=== PATIENT | female | born 1955 | race Caucasian/White ===

== ENCOUNTER → 2017-09-01 17:32 | Outpatient (CLI) | payer OTHER, SELFPAY ==
[2017-09-01 16:32] VITALS: BP 209/96; BMI 19.5
[2017-09-01 18:49] LABS: Free T3 2.6 pg/mL (2.18-3.98); T4 Free Direct 1.16 ng/dL (0.76-1.46); Thyroid Stim Hormone (TSH) 0.93 uIU/mL (0.358-3.74)
== END ==
PROVIDERS: Visit Provider Nurse Practitioner
DX: E03.9 Hypothyroidism, unspecified (principal)
CPT/HCPCS: 36415; 84439; 84443; 84481

== ENCOUNTER → 2020-03-14 10:48 | Outpatient (CLI) | payer OTHER, SELFPAY ==
[2020-03-14 10:22] VITALS: BMI 21.4
[2020-03-14 13:04] LABS: AST(SGOT) 26 U/L (15-37); Alanine Aminotransfer ALT/SGPT 22 U/L (13-56); Albumin, Serum 4.1 g/dL (3.2-5.0); Alkaline Phosphatase 161 U/L (45-117); Anion Gap 8 (5-15); BUN 4 mg/dL (7-18); BUN/Creat Ratio 5.6 RATIO (10-20); Calcium,Total 9.3 mg/dL (8.5-10.1); Chloride 90 mmol/L (98-107); Creatinine, Serum 0.71 mg/dL (0.55-1.02); EST Glomerular Filtration Rate 88 mL/min (>60); Est Glom Filt Rate - Afr Amer 106 mL/min (>60); Glucose 137 mg/dL (74-106); Potassium 4.4 mmol/L (3.5-5.1); Protein, Total 8.1 g/dL (6.4-8.2); Sodium Level 122 mmol/L (136-145); T4 Free Direct 1.51 ng/dL (0.76-1.46); Thyroid Stim Hormone (TSH) 0.03 uIU/mL (0.358-3.74)
== END ==
PROVIDERS: Referring Provider Internal Medicine Endocrinology, Diabetes & Metabolism; Visit Provider Internal Medicine Endocrinology, Diabetes & Metabolism
DX: E89.0 Postprocedural hypothyroidism (principal); I10 Essential (primary) hypertension
CPT/HCPCS: 36415; 80053; 84439; 84443

== ENCOUNTER 2023-09-20 03:34 | Inpatient (IN) | payer MEDICARE, SELFPAY ==
[2023-09-20] VITALS (7 sets, daily range): BP systolic 84–174; BP diastolic 70–126; PULSE 70–108; RESP 16–18; TEMP 36.3–37.1; O2SAT 96–99; BMI 22.8
--- NOTE | 2023-09-20 04:41 | PCM.HP.STD ---
HPI - General General Date of Admission: 09/20/23 Date of Service: 09/20/23 Chief Complaint: EtOH withdrawal symptoms, fall w/ RUE fracture. HPI Narrative The patient is a 67 y/o F w/ PMHx: Hypothyroidism, HTN, EtOH abuse (1 bottle wine, 4-6 beers nightly) who presents to the [facility] as direct admission 09/20/23 from [facility] ED secondary to fall noted to be on the ground when EMS arrived, possibly near 24 hours but uncertain timeline with evidence of withdrawal symptoms with tremors and confusion with last drink prior to OSH ED presentation noted ~ 24 hours prior to ED presentation. Workup in the outside hospital ED included VS: T98.1, HR 87, BP 127/92, RR 16, 96% on RA, ethyl alcohol 5, CPK 181, CMP with sodium 132, potassium 3.2, chloride 93, glucose 74, BUN/creatinine 12/0.65, AST/ALT 27/26, alk phos 178 otherwise hepatic profile not marked appearing, CBC with WBC 9.3, human 13.5, MCV 97, platelet 553 with left shift, coags with PT 13, INR 1.1, CT brain and CT cervical spine without acute findings, EKG with SR without acute evidence of ischemia, Plain Film RUE with distal radial fracture that was reduced and splinted in the ED. In the ED patient 130 mg IV phenobarbital administered, 2 mg IV ativan, potassium 40 mEq IV x 1, 1L NS, 200 mg thiamine, 1 mg folic acid. [facility] Medical History Alcohol abuse Hypertension, essential Postablative hypothyroidism Home Medications clonidine HCl 0.1 mg tablet 0.2 mg PO QHS 02/05/23 [History Last Taken Unknown] levothyroxine 88 mcg tablet 88 mcg PO .COMPLEX #90 tabs 02/05/23 [Rx Last Taken Unknown] metoprolol succinate 100 mg tablet,extended release 24 hr 100 mg PO DAILY 02/05/23 [History Last Taken Unknown] metoprolol succinate 25 mg tablet,extended release 24 hr mg PO DAILY HTN 09/20/23 [History Last Taken Unknown] Allergy/AdvReac Type Severity Reaction Status Date / Time poison robyn extract AdvReac Severe Rash Verified 02/05/23 08:41 Family History Mother Cancer Father Cancer Sister Thyroid disorder Surgical History History of surgical removal of ganglion cyst Social History (Updated 09/20/23 @ 05:17 by Kristy Kenyon) household members: none Smoking Status: Heavy Smoker (>10/day) alcohol intake: current alcohol intake frequency: 3 or more drinks per day substance use type: does not use ROS ROS Narrative Admission Review of Systems: CONSTITUTIONAL: No weight loss, fever, chills, + weakness or fatigue. HEENT: Eyes: No visual loss, blurred vision, double vision or yellow sclerae. Ears, Nose, Throat: No hearing loss, sneezing, congestion, runny nose or sore throat. SKIN: No rash or itching, lesions, wounds. CARDIOVASCULAR: No chest pain, chest pressure or chest discomfort, palpitations, edema, orthopnea, syncopal events. RESPIRATORY: No shortness of breath, cough or sputum, wheezing, hemoptysis. GASTROINTESTINAL: + anorexia, nausea. No vomiting or diarrhea, abdominal pain, melena, BRBPR. GENITOURINARY: No dysuria, frequency, urgency or retention. NEUROLOGICAL: + Tremors, tactile disturbances, frequent falls. No headache, dizziness, syncope, paralysis, ataxia, numbness or tingling in the extremities, focal weakness, change in bowel or bladder control, seizure. MUSCULOSKELETAL: + muscle, back pain, joint pain or stiffness. HEMATOLOGIC: No anemia, + Easy bleeding/bruising. LYMPHATICS: No enlarged nodes. No history of splenectomy. PSYCHIATRIC: No history of depression or anxiety. ENDOCRINOLOGIC: No reports of sweating, cold or heat intolerance. No polyuria or polydipsia. ALLERGIES: No history of asthma, hives, eczema or rhinitis. Physical Exam Narrative Physical Examination: General: Awake, alert, oriented to self, place, recent events, laughing and very bubbly with appearance of substance intoxication, remains cooperative, seated upright in the bed in no apparent distress. Skin: Normal color, normal turgor, no icterus, no cyanosis except occasional abrasion, very staged ecchymoses, right upper extremity is in splint. HEENT: AT/NC, EOMI, PERRLA, mildly dry MM, no carotid bruits or JVD noted. Lungs: Mildly diminished, greater bases, proper effort, no rales, ronchi or wheezing. Heart: Regular rate and rhythm; no gallop, rub audible. Abdomen: Soft, NTTP, ND, mildly hyperactive BS, no markedly appreciated HSM. Extremities: No cyanosis, no clubbing, see skin, right upper extremity in splint as noted, able to move fingers, sensation intact. Neurological: Patient awake, alert, oriented as noted, cognitive function suspect mildly off from her baseline given acute presentation with acute withdrawal and recent sedated medication; pupils equally reactive to light and accommodation, cranial nerves grossly normal, moving all 4 extremities, strength moderately to severely globally decreased secondary to acute presentation. Psychiatric: Affect appears interactive, appearance of substance intoxication, no acute evidence of depressive or anxiety feelings. Assessment & Plan Assessment/Plan (1) Alcohol withdrawal: (2) Distal radius fracture, right: PLAN: Plan The patient is a 67 y/o F w/ PMHx: Hypothyroidism, HTN, EtOH abuse (1 bottle wine, 4-6 beers nightly) who presents to the [facility] as direct admission 09/20/23 from [facility] ED secondary to fall noted to be on the ground when EMS arrived, possibly near 24 hours but uncertain timeline with evidence of withdrawal symptoms with tremors and confusion with last drink prior to OSH ED presentation noted ~ 24 hours prior to ED presentation. #1. Acute EtOH Withdrawal: Will admit to [facility], will initiate and continue on protocol with taper course of Phenobarbital, as needed gabapentin, Catapres, Bentyl, Vistaril, IV fluids, IV antiemetics, Tylenol as needed for pain. Will consult Case management for assistance for transition to next level of rehabilitation care. Mag, phos pending. Maintain on CIWA protocol concurrently. #2. Distal right upper extremity radial fracture: Plain film at outside facility with distal radial fracture of the right upper extremity status post reduction and splinting, will maintain nonweightbearing status, sling, elevation, icing, pain regimen, will need outpatient follow-up with orthopedic surgery at discharge. If concerns arise during admission certainly can request their evaluation inpatient. #3. History of frequent falls: Current presentation with fall history as noted but previously also had fall 09/10/2023 with outside facility imaging notable for CT chest/abdomen/pelvis with noted interval progression L1 compression fracture to severe with posterior retropulsion, nondisplaced T12 rib fracture with costovertebral angulation, T10 mild inferior endplate compression fracture, CT brain with no acute intracranial finding, extensive periventricular and patchy deep cerebral white matter hypodensities secondary to chronic small vessel ischemic disease, global atrophy, CT cervical spine with no acute osseous abnormality with multilevel degenerative changes resulting in varying degrees of foraminal narrowing. #4. Hyponatremia, possibly chronic given alcohol abuse history: Admission sodium from outside facility 132, will judiciously hydrate and repeat CMP in AM. #5. Hypokalemia: Admission K+ 3.2, magnesium level requested, supplementation given, repeat level in AM. #6. Hypothyroidism: Status post previous ablative therapy, will continue patient home levothyroxine regimen. #7. Hypertension: Continue home regimen including clonidine, lisinopril, PRN hydralazine. Given timeline suspect patient likely missed doses therefore will dose with clonidine now to avoid rebound hypertension. #8. DVT prophylaxis: Lovenox. Charges/Coding Visit Charges Inpatient E&M: 28638 Init Hosp L3
[2023-09-20] MEDS: Lactated Ringers 1,000 ML 125 ML IV (05:00)
[2023-09-20] MEDS: Phenobarbital 32.4 MG Tablet PO ×4 (05:59→18:49)
[2023-09-20] MEDS: cloNIDine HCl 0.2 MG Tablet PO ×2 (05:59→21:13)
[2023-09-20] MEDS: Levothyroxine 88 MCG Tablet PO (05:59)
[2023-09-20 07:30] LABS: Absolute Lymphocyte Count 0.58 X10^3/uL (0.83-4.51); Absolute Neutrophil Count 4.6 X10^3/uL (2.0-7.7); Basophil# 0.05 X10^3/uL; Basophil% 0.8 % (0-1); Eosinophil# 0.11 X10^3/uL; Eosinophils% 1.8 % (0-5); Hematocrit 36.2 % (37-47); Hemoglobin 12.1 g/dL (12.0-15.0); Lymphocyte # 0.58 X10^3/ul (0.83-4.51); Lymphocyte % 9.5 % (19-41); Mean Corp Hgb Conc 33.4 g/dL (32-36); Mean Corpuscular Hgb 32.5 pg (27.0-32.0); Mean Corpuscular Volume 97.3 fL (81-99); Mean Platelet Vol. 8.9 fl (6.2-12.0); Monocyte# 0.72 X10^3/uL; Monocyte% 11.8 % (0-10); NRBC Flagged by Analyzer 0 % (0-5); Neutrophil # 4.63 X10^3/uL (2.7-7.7); Neutrophil % 75.6 % (47-70); POSITIVE DIFFERENTIAL YES; Platelet Count 454 K/mm3 (150-450); RBC Distribution Width CV 12.1 % (11.6-14.6); Red Blood Count 3.72 M/mm3 (4.2-5.4); White Blood Count 6.1 K/mm3 (4.4-11.0)
[2023-09-20 08:03] LABS: AST(SGOT) 24 U/L (15-37); Alanine Aminotransfer ALT/SGPT 16 U/L (13-56); Albumin, Serum 2.9 g/dL (3.2-5.0); Alkaline Phosphatase 153 U/L (45-117); Anion Gap 11 (5-15); BUN 9 mg/dL (7-18); BUN/Creat Ratio 22.1 RATIO (10-20); Calcium,Total 8.4 mg/dL (8.5-10.1); Chloride 104 mmol/L (98-107); Creatinine, Serum 0.41 mg/dL (0.55-1.02); EST Glomerular Filtration Rate 165 mL/min (>60); Est Glom Filt Rate - Afr Amer 200 mL/min (>60); Estimated Creatinine Clearance 53.97 ml/min; Glucose 66 mg/dL (74-106); Magnesium 1.7 mg/dL (1.6-2.6); Phosphorus 2.6 mg/dL (2.5-4.9); Potassium 3.5 mmol/L (3.5-5.1); Protein, Total 5.9 g/dL (6.4-8.2); Sodium Level 134 mmol/L (136-145)
--- NOTE | 2023-09-20 08:26 | PCM.PN.HOSP ---
Reason for Visit Reason for Visit: Diagnoses Alcohol use, unspecified with withdrawal, unspecified (09/20/23) Unspecified fracture of the lower end of right radius, initial encounter for closed fracture (09/20/23) Objective Data Objective Data Vital Signs: Vital Signs Temp Pulse Resp BP Pulse Ox O2 Del Method 98.7 F 108 H 18 174/126 H 99 Room Air 09/20/23 05:00 09/20/23 05:00 09/20/23 05:00 09/20/23 05:00 09/20/23 05:00 09/20/23 06:05 Oxygen Delivery Method Room Air Weight: 124 lb 8.979 oz Body Mass Index (BMI) 22.8 Intake & Output: Intake and Output for Last 24 Hours 09/18/23 09/19/23 09/20/23 23:59 23:59 23:59 Intake Total 150 / 150 Balance 150 / 150 Lab / Micro Data 09/20/23 06:45 09/20/23 06:45 Labs: Laboratory Results - last 24 hr 09/20/23 06:45: WBC 6.1, RBC 3.72 L, Hgb 12.1, Hct 36.2 L, MCV 97.3, MCH 32.5 H, MCHC 33.4, RDW Std Deviation 43.0, RDW Coeff of Chace 12.1, Plt Count 454 H, MPV 8.9, Immature Gran % (Auto) 0.500, Neut % (Auto) 75.6 H, Lymph % (Auto) 9.5 L, [place] % (Auto) 11.8 H, Eos % (Auto) 1.8, Baso % (Auto) 0.8, Absolute Neuts (auto) 4.6, Absolute Lymphs (auto) 0.58 L, Nucleated RBC % 0, Sodium 134 L, Potassium 3.5, Chloride 104, Carbon Dioxide 19.0 L, Anion Gap 11, BUN 9, Creatinine 0.41 L, Estim Creat Clear Calc 53.97, Est GFR (MDRD) Af Amer 200, Est GFR (MDRD) Non-Af 165, BUN/Creatinine Ratio 22.1 H, Glucose 66 L, Calcium 8.4 L, Phosphorus 2.6, Magnesium 1.7, Total Bilirubin 0.60, AST 24, ALT 16, Alkaline Phosphatase 153 H, Total Protein 5.9 L, Albumin 2.9 L, Globulin 3.0, Albumin/Globulin Ratio 1.0 Assessment & Plan Assessment/Plan (1) Alcohol withdrawal: (2) Distal radius fracture, right: PLAN: Plan The patient is a 67 y/o F w/ PMHx: Hypothyroidism, HTN, EtOH abuse (1 bottle wine, 4-6 beers nightly) who presents to the [facility] as direct admission 09/20/23 from [facility] ED secondary to fall noted to be on the ground when EMS arrived, possibly near 24 hours but uncertain timeline with evidence of withdrawal symptoms with tremors and confusion with last drink prior to OSH ED presentation noted ~ 24 hours prior to ED presentation. #1. Acute EtOH Withdrawal: Patient is being admitted to PCU. Patient on phenobarbital based order set along with other adjunctive medications gabapentin, Bentyl, Vistaril, clonidine, Klonopin as needed for alcohol withdrawal symptom control. Patient is on thiamine and folate acid. CIWA monitor. finance manager consulted.. #2. Distal right upper extremity radial fracture: Plain film at outside facility with distal radial fracture of the right upper extremity status post reduction and splinting, will maintain nonweightbearing status, sling, elevation, icing, pain regimen, will need outpatient follow-up with orthopedic surgery at discharge. #3. History of frequent falls: Current presentation with fall history as noted but previously also had fall 09/10/2023 with outside facility imaging notable for CT chest/abdomen/pelvis with noted interval progression L1 compression fracture to severe with posterior retropulsion, nondisplaced T12 rib fracture with costovertebral angulation, T10 mild inferior endplate compression fracture, CT brain with no acute intracranial finding, extensive periventricular and patchy deep cerebral white matter hypodensities secondary to chronic small vessel ischemic disease, global atrophy, CT cervical spine with no acute osseous abnormality with multilevel degenerative changes resulting in varying degrees of foraminal narrowing. #4. Hyponatremia, possibly chronic given alcohol abuse history: Admission sodium from outside facility 132 Serum sodium 134. Chronic mostly due to low solute intake. #5. Hypokalemia: Admission K+ 3.2, magnesium level requested, supplementation given, Serum potassium low normal. Serum magnesium 1.7. Potassium and magnesium replacement ordered on chronic alcohol use disorder patient #6. Hypothyroidism: Status post previous ablative therapy, will continue patient home levothyroxine regimen. #7. Hypertension: Continue home regimen including clonidine, lisinopril, PRN hydralazine. Given timeline suspect patient likely missed doses therefore will dose with clonidine now to avoid rebound hypertension. #8. DVT prophylaxis: Lovenox. Charges/Coding Visit Charges Inpatient E&M: 80979 Subs Hosp L2
[2023-09-20] MEDS: Folic Acid 1 MG Tablet PO (10:43)
[2023-09-20] MEDS: Thiamine Hydrochloride 100 MG Tablet PO (10:43)
[2023-09-20] MEDS: Enoxaparin 40 MG/0.4 ML Syringe SC (10:48)
--- NOTE | 2023-09-20 15:20 | CASEMGMT ---
Addendum entered by Tia Thomas 09/20/23 15:24: [facility] Justine Palencialuis [phone]. Original Note: ELMA received a call from Justine Lang of [facility]. Justine asked if patient was still at [facility], how she is doing, and if SW could notify her when patient is discharged. SW confirmed patient is at [facility] and she is currently confused. ELMA will call Adult Protective Services when patient is ready for discharge. Tia LARA
[2023-09-20] MEDS: Potassium Chloride Oral Tablet 20 MEQ 40 MEQ PO (15:34)
[2023-09-20] MEDS: Magnesium Chloride 64 MG Delay Rel.Tablet 128 MG PO ×2 (15:35→21:13)
[2023-09-21] MEDS: Phenobarbital 32.4 MG Tablet PO ×7 (00:05→22:47)
[2023-09-21 04:30] VITALS: BP 136/89; PULSE 80; RESP 18; TEMP 36.2; O2SAT 96
[2023-09-21] MEDS: Ibuprofen 600 MG Tablet PO ×2 (04:40→15:56)
[2023-09-21] MEDS: Levothyroxine 88 MCG Tablet PO (04:40)
[2023-09-21] MEDS: Enoxaparin 40 MG/0.4 ML Syringe SC (04:41)
[2023-09-21 07:10] VITALS: O2SAT 95
[2023-09-21] MEDS: Thiamine Hydrochloride 100 MG Tablet PO (08:00)
[2023-09-21] MEDS: Potassium Chloride Oral Tablet 20 MEQ 40 MEQ PO (08:00)
[2023-09-21] MEDS: Folic Acid 1 MG Tablet PO (08:00)
[2023-09-21] MEDS: Multivitamins,Ther W-Minerals Tablet 1 TABLET PO (08:00)
[2023-09-21 08:24] VITALS: BP 129/93; PULSE 94; RESP 18; TEMP 36.3; O2SAT 97
[2023-09-21 08:37] LABS: ALB/GLOB Ratio 0.9 RATIO (0.9-2.4); AST(SGOT) 19 U/L (15-37); Alanine Aminotransfer ALT/SGPT 16 U/L (13-56); Albumin, Serum 2.7 g/dL (3.2-5.0); Alkaline Phosphatase 135 U/L (45-117); Anion Gap 10 (5-15); BUN 8 mg/dL (7-18); BUN/Creat Ratio 17.4 RATIO (10-20); Calcium,Total 8.4 mg/dL (8.5-10.1); Chloride 105 mmol/L (98-107); Creatinine, Serum 0.46 mg/dL (0.55-1.02); EST Glomerular Filtration Rate 144 mL/min (>60); Est Glom Filt Rate - Afr Amer 174 mL/min (>60); Estimated Creatinine Clearance 53.97 ml/min; Glucose 62 mg/dL (74-106); Potassium 4.1 mmol/L (3.5-5.1); Protein, Total 5.7 g/dL (6.4-8.2); Sodium Level 134 mmol/L (136-145)
--- NOTE | 2023-09-21 08:53 | PCM.PN.HOSP ---
Reason for Visit Reason for Visit: Diagnoses Alcohol use, unspecified with withdrawal, unspecified (09/20/23) Unspecified fracture of the lower end of right radius, initial encounter for closed fracture (09/20/23) Objective Data Objective Data Vital Signs: Vital Signs Temp Pulse Resp BP Pulse Ox O2 Del Method 97.3 F L 94 18 129/93 H 97 Room Air 09/21/23 08:24 09/21/23 08:24 09/21/23 08:24 09/21/23 08:24 09/21/23 08:24 09/21/23 08:24 Oxygen Delivery Method Room Air Weight: 124 lb 8.979 oz Body Mass Index (BMI) 22.8 Intake & Output: Intake and Output for Last 24 Hours 09/19/23 09/20/23 09/21/23 23:59 23:59 23:59 Intake Total 1330 / 1450 270 / 270 Output Total 150 / 350 200 / 200 Balance 1180 / 1100 70 / 70 Lab / Micro Data 09/20/23 06:45 09/21/23 07:45 Labs: Laboratory Results - last 24 hr 09/21/23 07:45: Sodium 134 L, Potassium 4.1, Chloride 105, Carbon Dioxide 19.0 L, Anion Gap 10, BUN 8, Creatinine 0.46 L, Estim Creat Clear Calc 53.97, Est GFR (MDRD) Af Amer 174, Est GFR (MDRD) Non-Af 144, BUN/Creatinine Ratio 17.4, Glucose 62 L, Calcium 8.4 L, Total Bilirubin 0.40, AST 19, ALT 16, Alkaline Phosphatase 135 H, Total Protein 5.7 L, Albumin 2.7 L, Globulin 3.0, Albumin/Globulin Ratio 0.9 Physical Exam Narrative Seen and examined. Patient is awake and talking. Yesterday she was very sleepy and sedated. She stated she did not had a bowel movement for for 5 days. No dysuria. Physical exam General: Alert, Oriented x3, Cooperative feels fatigued. HEENT: Atraumatic, PERRLA, EOMI, Normocephalic Oral: No Gingival or Mucosal Lesions/ Ulcerations Neck: Supple, No JVD, Negative Carotid Bruits Chest wall/Lungs: Air entry diminished in bilateral lung bases. No crepitation/rhonchi Cardiovascular: Regular rate, Regular Rhythm, Normal S1, Normal S2, No M/G/R Abdomen: Bowel Sounds Present, Soft, Non Tender, Non-Distended : No dysuria. No renal angle tenderness. No suprapubic tenderness. Extremities: No edema, Capillary Refill Less than 3 Seconds Skin: No rashes, No breakdown Musculoskeletal: No Tenderness to Palpation of Joints or Extremities. Mild shaking/tremors Neurological: Cranial nerves II-XII grossly intact, DTR 2+/4. No acute focal neurological deficit. Psych/Mental Status: Flat affect Assessment & Plan Assessment/Plan (1) Alcohol withdrawal: (2) Distal radius fracture, right: PLAN: Plan The patient is a 67 y/o F w/ PMHx: Hypothyroidism, HTN, EtOH abuse (1 bottle wine, 4-6 beers nightly) who presents to the [facility] as direct admission 09/20/23 from [facility] ED secondary to fall noted to be on the ground when EMS arrived, possibly near 24 hours but uncertain timeline with evidence of withdrawal symptoms with tremors and confusion with last drink prior to OSH ED presentation noted ~ 24 hours prior to ED presentation. #1. Acute EtOH Withdrawal: Patient is being admitted to PCU. Patient on phenobarbital based order set along with other adjunctive medications gabapentin, Bentyl, Vistaril, clonidine, Klonopin as needed for alcohol withdrawal symptom control. Patient is on thiamine and folate acid. CIWA monitor. biodiesel engineering manager consulted. 09/21: Patient is more awake and alert but is still shaking. Continue above medications. #2. Distal right upper extremity radial fracture: Plain film at outside facility with distal radial fracture of the right upper extremity status post reduction and splinting, will maintain nonweightbearing status, sling, elevation, icing, pain regimen, will need outpatient follow-up with orthopedic surgery at discharge. #3. History of frequent falls: Current presentation with fall history as noted but previously also had fall 09/10/2023 with outside facility imaging notable for CT chest/abdomen/pelvis with noted interval progression L1 compression fracture to severe with posterior retropulsion, nondisplaced T12 rib fracture with costovertebral angulation, T10 mild inferior endplate compression fracture, CT brain with no acute intracranial finding, extensive periventricular and patchy deep cerebral white matter hypodensities secondary to chronic small vessel ischemic disease, global atrophy, CT cervical spine with no acute osseous abnormality with multilevel degenerative changes resulting in varying degrees of foraminal narrowing. #4. Hyponatremia, possibly chronic given alcohol abuse history: Admission sodium from outside facility 132 Serum sodium 134. Chronic mostly due to low solute intake. 09/14; sodium is 13, serum potassium normal.4 bicarb 19. Anion gap 10. #5. Hypokalemia: Admission K+ 3.2, magnesium level requested, supplementation given, Serum potassium low normal. Serum magnesium 1.7. Potassium and magnesium replacement ordered on chronic alcohol use disorder patient 09/21: Hypokalemia resolved. #6. Hypothyroidism: Status post previous ablative therapy, will continue patient home levothyroxine regimen. #7. Hypertension: Continue home regimen including clonidine, lisinopril, PRN hydralazine. Given timeline suspect patient likely missed doses therefore will dose with clonidine now to avoid rebound hypertension. #8. DVT prophylaxis: Lovenox. Charges/Coding Visit Charges Inpatient E&M: 80907 Subs Hosp L2
[2023-09-21] MEDS: Magnesium Chloride 64 MG Delay Rel.Tablet 128 MG PO ×2 (10:20→22:47)
[2023-09-21 10:21] VITALS: BP 128/95; PULSE 119
[2023-09-21] MEDS: Metoprolol(XL)Succ 25 MG Tablet PO (10:21)
[2023-09-21 10:30] VITALS: BP 128/90; PULSE 112; RESP 16; TEMP 36.4; O2SAT 98
--- NOTE | 2023-09-21 11:13 | ADDICTION ---
This worker met with PT and completed all assessments. Pt refused any type of discharge planning. She thanked me for my time but was not interested in any AOD follow-up.
[2023-09-21 11:35] LABS: Bedside Glucose 91 mg/dL (74-106)
[2023-09-21 20:30] VITALS: BP 145/106; PULSE 94; RESP 14; TEMP 36.7; O2SAT 95
[2023-09-21] MEDS: cloNIDine HCl 0.2 MG Tablet PO (22:47)
[2023-09-22 02:30] VITALS: BP 140/94; PULSE 84; RESP 14; TEMP 36.4; O2SAT 98
[2023-09-22] MEDS: Phenobarbital 32.4 MG Tablet PO ×5 (02:59→20:54)
[2023-09-22] MEDS: Enoxaparin 40 MG/0.4 ML Syringe SC (05:28)
[2023-09-22] MEDS: Levothyroxine 88 MCG Tablet PO (05:29)
[2023-09-22 07:39] VITALS: BP 136/87; PULSE 88; RESP 16; TEMP 36.3; O2SAT 96
[2023-09-22] MEDS: Potassium Chloride Oral Tablet 20 MEQ 40 MEQ PO (07:42)
[2023-09-22] MEDS: Multivitamins,Ther W-Minerals Tablet 1 TABLET PO (07:42)
[2023-09-22] MEDS: Thiamine Hydrochloride 100 MG Tablet PO (07:43)
[2023-09-22] MEDS: Menthol/Lanolin/Calamine/Znox 113 GM Tube 1 APPLIC TOPICAL (07:43)
[2023-09-22] MEDS: Folic Acid 1 MG Tablet PO (07:43)
[2023-09-22 07:48] VITALS: BP 136/87; PULSE 88
[2023-09-22] MEDS: Metoprolol(XL)Succ 25 MG Tablet PO (07:48)
[2023-09-22] MEDS: Magnesium Chloride 64 MG Delay Rel.Tablet 128 MG PO ×2 (07:49→20:56)
--- NOTE | 2023-09-22 11:45 | PCM.PN.HOSP ---
Reason for Visit Reason for Visit: Acute alcohol withdrawal/fall with right upper extremity fracture Subjective Subjective Patient is a 67-year-old white female who presented to [facility] as a direct admission on 09/20/2023 from [facility] ED secondary to fall. She was found on the ground when EMS arrived and it was felt that possibly 24 hours had gone by since she fell but this timeline was uncertain. She did have evidence of acute alcohol withdrawal consistent with tremors and confusion. She reports that she drinks about 1 bottle of wine and 4-6 beers every night. Workup at outside facility showed stable vital signs. Her ethyl alcohol level was 5. Her CPK was 181. Sodium was slightly low at 132 with hypokalemia having a potassium of 3.2. Glucose was normal. Kidney function was unremarkable. Liver function was unremarkable. CBC was unremarkable and coags were normal. CT of the brain and cervical spine showed no acute findings. EKG was sinus rhythm without any evidence of acute ischemia. Plain films of the right upper extremity showed a distal radial fracture that was reduced and splinted in the emergency department at outside facility. She was given 130 mg of IV phenobarbital and 2 mg of Ativan as well as potassium, IV fluids, thiamine, and folate and transferred to our facility. Today she is having confusion and some intermittent agitation and anxiety however was calm at the time of my evaluation. She told me she was at [facility] however when I corrected her she said oh that is right about [place]. She was able to tell me the month and the year. She is intermittently confused and has some tremor and generalized weakness. Objective Data Objective Data Vital Signs: Vital Signs Temp Pulse Resp BP Pulse Ox O2 Del Method 97.3 F L 88 16 136/87 H 96 Room Air 09/22/23 07:39 09/22/23 07:48 09/22/23 07:39 09/22/23 07:48 09/22/23 07:39 09/22/23 07:39 Oxygen Delivery Method Room Air Weight: 56.5 kg Body Mass Index (BMI) 22.8 Intake & Output: Intake and Output for Last 24 Hours 09/20/23 09/21/23 09/22/23 23:59 23:59 23:59 Intake Total 1330 / 1450 970 / 1070 350 / 350 Output Total 150 / 350 200 / 200 100 / 100 Balance 1180 / 1100 770 / 870 250 / 250 Lab / Micro Data 09/20/23 06:45 09/21/23 07:45 Physical Exam Const alert, no apparent distress, average body habitus and well nourished Constitutional Narrative: Oriented to self and time but not place, mild tremor and impulsiveness, watching television and appears comfortable currently HEENT head/scalp atraumatic, moist oral mucous membranes and oropharynx normal Resp normal respiratory effort, no retractions, no use of accessory muscles and clear to auscultation bilaterally Resp Narrative: Diminished diffusely but clear Auscultation: Negative for crackles, rhonchi or wheezes Cardio regular rate, regular rhythm, S1 normal heart sound, S2 normal heart sound, no murmurs, no rub, no gallops and no clicks GI normal to inspection, nondistended, normoactive bowel sounds, soft to palpation and non-tender Extremity no clubbing, cyanosis or edema Extremity Narrative: Pedal pulses are 2+, radial pulses are 2+, right upper extremity is in a splint Neuro moves all extremities Sensorium / Orientation: awake, alert, oriented to person and oriented to time; Negative for oriented to place Psych Psych Narrative: Somewhat impulsive, affect appears stable, mood appears stable, Assessment & Plan Assessment/Plan (1) Alcohol withdrawal: (2) Distal radius fracture, right: PLAN: Plan Acute alcohol withdrawal -Patient was somewhat worsening confusion today -Suspect related to alcohol withdrawal -We anticipate that were about 3 days out from her last drink -Continue to phenobarbital -Continue thiamine and folate -Continue supportive medications -180 has met with the patient and she is declining any outpatient services -I did impress upon her the importance of outpatient follow-up and maintaining sobriety but she was adamant she does not need any outpatient resources Mild hyponatremia -Sodium is 134 -Likely related to chronic alcohol use -Repeat lab in a.m. Toxic/metabolic encephalopathy -Likely related to the above -Continue to monitor Right distal radius fracture -It was reduced and splinted -Nonweightbearing status -Pain regimen as ordered -Patient will need outpatient orthopedic surgery follow-up after discharge History of falls -PT/OT are following--> placement has been recommended however she is currently going through withdrawal will continue to monitor progress with PT and OT to see if this is ongoing or if she improves -Case management and health and social care teacher following L1 compression fracture/T12 rib fracture/T10 compression fracture -Patient is not currently complaining of any significant pain at this time -Will continue to monitor and evaluate as patient starts to move more Hypokalemia -Resolved after supplementation -Repeat a.m. BMP Hypothyroidism -Patient with history of thyroid ablation -Follows with Dr. Abraham -Continue home levothyroxine Hypertension -Continue home clonidine -Continue home metoprolol -As needed hydralazine DVT prophylaxis -Continue subcu Lovenox CODE STATUS -Full code is verified on admission Charges/Coding Visit Charges Inpatient E&M: 30178 Subs Hosp L2
[2023-09-22] MEDS: cloNIDine HCl 0.2 MG Tablet PO (20:56)
[2023-09-22 21:47] VITALS: BP 153/100; PULSE 108; RESP 16; TEMP 36.2; O2SAT 94
[2023-09-23 03:47] VITALS: BP 150/98; PULSE 88; RESP 14; TEMP 36.3; O2SAT 97
[2023-09-23 08:19] LABS: Hemoglobin 12.8 g/dL (12.0-15.0); Mean Corp Hgb Conc 32.8 g/dL (32-36); Mean Corpuscular Hgb 32.3 pg (27.0-32.0); Mean Corpuscular Volume 98.5 fL (81-99); Mean Platelet Vol. 9.2 fl (6.2-12.0); Platelet Count 377 K/mm3 (150-450); RBC Distribution Width CV 12.7 % (11.6-14.6); RBC Distribution Width SD 45.9 fl (35.1-43.9); Red Blood Count 3.96 M/mm3 (4.2-5.4); White Blood Count 5.2 K/mm3 (4.4-11.0)
[2023-09-23 08:41] VITALS: BP 137/100; PULSE 82; RESP 16; TEMP 36.7; O2SAT 98
[2023-09-23] MEDS: Metoprolol(XL)Succ 25 MG Tablet PO (08:41)
[2023-09-23] MEDS: Thiamine Hydrochloride 100 MG Tablet PO (08:41)
[2023-09-23] MEDS: Multivitamins,Ther W-Minerals Tablet 1 TABLET PO (08:41)
[2023-09-23] MEDS: Folic Acid 1 MG Tablet PO (08:41)
[2023-09-23] MEDS: Potassium Chloride Oral Tablet 20 MEQ 40 MEQ PO (08:41)
[2023-09-23] MEDS: Magnesium Chloride 64 MG Delay Rel.Tablet 128 MG PO (08:42)
[2023-09-23] MEDS: Menthol/Lanolin/Calamine/Znox 113 GM Tube 1 APPLIC TOPICAL (08:42)
[2023-09-23 08:49] LABS: Anion Gap 4 (5-15); BUN 7 mg/dL (7-18); BUN/Creat Ratio 12.4 RATIO (10-20); Calcium,Total 8.5 mg/dL (8.5-10.1); Chloride 105 mmol/L (98-107); Creatinine, Serum 0.56 mg/dL (0.55-1.02); EST Glomerular Filtration Rate 113 mL/min (>60); Est Glom Filt Rate - Afr Amer 137 mL/min (>60); Estimated Creatinine Clearance 53.97 ml/min; Glucose 70 mg/dL (74-106); Sodium Level 132 mmol/L (136-145)
--- NOTE | 2023-09-23 11:16 | CASEMGMT ---
ELMA returned a call to Justine from [facility] ([facility]). SW left Justine a voice mail letting her know patient is still at [facility] and confused. Tia LARA
[2023-09-23] MEDS: Phenobarbital 32.4 MG Tablet PO ×3 (11:25→23:09)
[2023-09-23 14:43] VITALS: BP 140/93; PULSE 99; RESP 16; TEMP 37.1; O2SAT 98
--- NOTE | 2023-09-23 16:24 | PCM.PN.HOSP ---
Reason for Visit Reason for Visit: Acute alcohol withdrawal/fall/right upper extremity fracture Subjective Subjective Patient remains confused. No issues overnight. Per nursing with ongoing intermittent confusion. Only oriented to self by name but not birthday. Objective Data Objective Data Vital Signs: Vital Signs Temp Pulse Resp BP Pulse Ox O2 Del Method 98.8 F 99 16 140/93 H 98 Room Air 09/23/23 14:43 09/23/23 14:43 09/23/23 14:43 09/23/23 14:43 09/23/23 14:43 09/23/23 14:43 Oxygen Delivery Method Room Air Weight: 56.5 kg Body Mass Index (BMI) 22.8 Intake & Output: Intake and Output for Last 24 Hours 09/21/23 09/22/23 09/23/23 23:59 23:59 23:59 Intake Total 970 / 1070 720 / 720 360 / 360 Output Total 200 / 200 700 / 700 450 / 450 Balance 770 / 870 20 / 20 -90 / -90 Lab / Micro Data 09/23/23 07:40 09/23/23 07:40 Labs: Laboratory Results - last 24 hr 09/23/23 07:40: WBC 5.2, RBC 3.96 L, Hgb 12.8, Hct 39.0, MCV 98.5, MCH 32.3 H, MCHC 32.8, RDW Std Deviation 45.9 H, RDW Coeff of Chace 12.7, Plt Count 377, MPV 9.2, Sodium 132 L, Potassium 5.0, Chloride 105, Carbon Dioxide 23.0, Anion Gap 4 L, BUN 7, Creatinine 0.56, Estim Creat Clear Calc 53.97, Est GFR (MDRD) Af Amer 137, Est GFR (MDRD) Non-Af 113, BUN/Creatinine Ratio 12.4, Glucose 70 L, Calcium 8.5 Physical Exam Const alert, no apparent distress, average body habitus and well nourished Constitutional Narrative: Oriented to self by name only but not birthdate, not oriented to time or place, tremor has improved but patient with remaining impulsiveness, watching television and eating breakfast and appears comfortable HEENT head/scalp atraumatic, moist oral mucous membranes and oropharynx normal Resp normal respiratory effort, no retractions, no use of accessory muscles and clear to auscultation bilaterally Resp Narrative: Diminished diffusely but clear Auscultation: Negative for crackles, rhonchi or wheezes Cardio regular rate, regular rhythm, S1 normal heart sound, S2 normal heart sound, no murmurs, no rub, no gallops and no clicks GI normal to inspection, nondistended, normoactive bowel sounds, soft to palpation and non-tender Extremity no clubbing, cyanosis or edema Extremity Narrative: Pedal pulses are 2+, radial pulses are 2+, right upper extremity is in a splint Neuro moves all extremities Sensorium / Orientation: awake, alert and oriented to person; Negative for oriented to place or oriented to time Speech: speech normal Psych Psych Narrative: Somewhat impulsive, affect appears stable, mood appears stable, Assessment & Plan Assessment/Plan (1) Alcohol withdrawal: (2) Distal radius fracture, right: PLAN: Plan Acute alcohol withdrawal -Patient was somewhat worsening confusion today -Suspect related to alcohol withdrawal -We anticipate that were about 4 days out from her last drink -Continue to phenobarbital -Continue thiamine and folate -Continue supportive medications -180 has met with the patient and she is declining any outpatient services -I did impress upon her the importance of outpatient follow-up and maintaining sobriety but she was adamant she does not need any outpatient resources Mild hyponatremia -Sodium is 132 -Likely related to chronic alcohol use -Repeat lab in a.m. Toxic/metabolic encephalopathy -Likely related to the above -Continue to monitor Right distal radius fracture -It was reduced and splinted -Nonweightbearing status -Pain regimen as ordered -Patient will need outpatient orthopedic surgery follow-up after discharge History of falls -PT/OT are following--> placement has been recommended however she is currently going through withdrawal will continue to monitor progress with PT and OT to see if this is ongoing or if she improves -Case management and licensed clinical social worker following L1 compression fracture/T12 rib fracture/T10 compression fracture -Patient is not currently complaining of any significant pain at this time -Will continue to monitor and evaluate as patient starts to move more Hypokalemia -Resolved Hypothyroidism -Patient with history of thyroid ablation -Follows with Dr. Abraham -Continue home levothyroxine Hypertension -Continue home clonidine -Continue home metoprolol but increase dose to 50 mg daily -As needed hydralazine DVT prophylaxis -Continue subcu Lovenox CODE STATUS -Full code is verified on admission Charges/Coding Visit Charges Inpatient E&M: 15727 Subs Hosp L2
[2023-09-23] MEDS: cloNIDine HCl 0.2 MG Tablet PO (19:56)
[2023-09-23 20:40] VITALS: BP 144/102; PULSE 98; RESP 18; TEMP 36.2; O2SAT 96
[2023-09-23] MEDS: traZODone 100 MG Tablet PO (23:09)
[2023-09-24 02:40] VITALS: BP 150/97; PULSE 95; RESP 16; TEMP 36.6; O2SAT 96
[2023-09-24] MEDS: Phenobarbital 32.4 MG Tablet PO (05:28)
[2023-09-24] MEDS: Enoxaparin 40 MG/0.4 ML Syringe SC (05:28)
[2023-09-24] MEDS: Levothyroxine 88 MCG Tablet PO (05:28)
[2023-09-24 07:40] LABS: Anion Gap 5 (5-15); BUN 10 mg/dL (7-18); BUN/Creat Ratio 20.8 RATIO (10-20); Calcium,Total 8.5 mg/dL (8.5-10.1); Chloride 106 mmol/L (98-107); Creatinine, Serum 0.48 mg/dL (0.55-1.02); EST Glomerular Filtration Rate 136 mL/min (>60); Est Glom Filt Rate - Afr Amer 165 mL/min (>60); Estimated Creatinine Clearance 53.97 ml/min; Glucose 84 mg/dL (74-106); Sodium Level 136 mmol/L (136-145)
[2023-09-24 07:46] VITALS: BP 148/107; PULSE 85; RESP 16; TEMP 36.5; O2SAT 99
[2023-09-24] MEDS: Multivitamins,Ther W-Minerals Tablet 1 TABLET PO (07:51)
[2023-09-24] MEDS: Gabapentin 300 MG Capsule PO (07:51)
[2023-09-24] MEDS: Folic Acid 1 MG Tablet PO (07:52)
[2023-09-24] MEDS: Thiamine Hydrochloride 100 MG Tablet PO (07:52)
[2023-09-24 07:54] VITALS: PULSE 85
[2023-09-24] MEDS: Metoprolol(XL)Succ 50 MG Tablet PO (07:54)
--- NOTE | 2023-09-24 10:33 | CASEMGMT ---
Discharge Planning A list of SNF providers including quality and resource use data and consistent with the patient's preferred geographic region, medical needs, and insurance network was created in [facility] [facility].? This list was provided to the SW. Malgorzata Trimble Discharge Planning Asst.
--- NOTE | 2023-09-24 12:21 | CASEMGMT ---
Social Work SW met w/pt in room, physician had stated that pt is more alert and oriented now. Pt is able to answer SW questions, however is very slow to answer. Pt attempting to take a sip of water out of a cup for the majority of the time SW was in the room. SW asked initially about family, pt confirmed that the person listed on the face sheet is her sister, confirmed she lives in [place]. She states her sister's name is Char Guido. SW asked if she has any other family she said she has a son in law in [place]. SW asked if pt has or had a son or daughter, pt states no. SW inquired how she has a son in law then. Pt explains it is her 's son, SW was able to clarify w/pt she meant a step son. She states his name is Rafael, states she does speak w/him. SW spoke w/pt about going somewhere for some physical therapy rehab. Initially pt states no, she will go home. SW reminded pt that she was needing the assist of two with therapy, and it would likely be very difficult for her to manage on her own at home. Pt states she was doing it before she was in the hospital, and states her arm was broken then too. SW explained did not see how she was getting around at home, can only go by how she is moving here, and she is needing a lot of assist. SW reviewed w/pt the list of jail facilities from [facility] of SNFs in network w/pt's insurance, preferred geographic area, and complete w/quality and resource use data. Pt agreeable to a referral to [facility] at this time. Referral to be made today. SW will continue to follow. ELLYN Mohr
[2023-09-24 13:50] VITALS: BP 89/71; PULSE 56; RESP 16; TEMP 36.5; O2SAT 96
--- NOTE | 2023-09-24 13:52 | CASEMGMT ---
Social Work SW received a call from Jennifer w/[facility] in [facility] asking for an update. SW explained that pt may go to [facility], we are sending a referral there, pt did agree to let SW send referral. SW did explain that pt wants to go home but is needing too much assist w/PT. Jennifer confirmed pt's sister does live in [place] and her name is Jolene Guido. She states she calls pt daily and when she is concerned, she has the neighbor go to check on her. She states pt was to go out to see her sister in [place] on 10/07 for her sister's wedding, and her sister bought her a one way ticket in the hopes pt would stay there. Jennifer asked for an update when pt is discharged, if pt is still here Wednesday she may come out to see her. Jennifer's number is [phone]. ELMA will continue to follow. ELLYN Mohr
--- NOTE | 2023-09-24 14:17 | CASEMGMT ---
Addendum entered by Malgorzata Trimble 09/24/23 16:47: [facility] declined patient. SW updated. Malgorzata Trimble, Discharge Planning Original Note: Discharge Planning Referral sent to [facility] via [facility]. Malgorzata Trimble, Discharge Planning Asst.
[2023-09-24 15:30] VITALS: BP 125/97; PULSE 80; RESP 16; TEMP 36.5; O2SAT 96
--- NOTE | 2023-09-24 16:28 | PCM.PN.HOSP ---
Reason for Visit Reason for Visit: Fall/alcohol abuse/detox Subjective Subjective No issues overnight. Patient is mentating much better and is alert and oriented x 3. Is agreeable to go to rehab if need be Objective Data Objective Data Vital Signs: Vital Signs Temp Pulse Resp BP Pulse Ox O2 Del Method 97.7 F L 80 16 125/97 H 96 Room Air 09/24/23 15:30 09/24/23 15:30 09/24/23 15:30 09/24/23 15:30 09/24/23 15:30 09/24/23 15:30 Oxygen Delivery Method Room Air Weight: 56.5 kg Body Mass Index (BMI) 22.8 Intake & Output: Intake and Output for Last 24 Hours 09/22/23 09/23/23 09/24/23 23:59 23:59 23:59 Intake Total 720 / 720 1060 / 1060 220 / 220 Output Total 700 / 700 850 / 850 450 / 450 Balance 210 / 210 -230 / -230 Lab / Micro Data 09/23/23 07:40 09/24/23 06:50 Labs: Laboratory Results - last 24 hr 09/24/23 06:50: Sodium 136, Potassium 4.0, Chloride 106, Carbon Dioxide 25.0, Anion Gap 5, BUN 10, Creatinine 0.48 L, Estim Creat Clear Calc 53.97, Est GFR (MDRD) Af Amer 165, Est GFR (MDRD) Non-Af 136, BUN/Creatinine Ratio 20.8 H, Glucose 84, Calcium 8.5 Physical Exam Const alert, oriented x3, no apparent distress, average body habitus and well nourished Constitutional Narrative: Very pleasant, now oriented x 3, upper middle-aged, white female who appears older than stated age, lying in bed sleeping but awakens easily, interacts appropriately, no significant tremor noted HEENT head/scalp atraumatic, moist oral mucous membranes and oropharynx normal HEENT Narrative: Mallampati 2, no thrush Resp normal respiratory effort, no retractions, no use of accessory muscles and clear to auscultation bilaterally Resp Narrative: Diminished diffusely but clear Auscultation: Negative for crackles, rhonchi or wheezes Cardio regular rate, regular rhythm, S1 normal heart sound, S2 normal heart sound, no murmurs, no rub, no gallops and no clicks GI normal to inspection, nondistended, normoactive bowel sounds, soft to palpation and non-tender Extremity no clubbing, cyanosis or edema Extremity Narrative: Pedal pulses are 2+, radial pulses are 2+, right upper extremity is in a splint Neuro oriented x3 and no focal motor deficits Sensorium / Orientation: awake, alert, oriented to person, oriented to place and oriented to time Speech: speech normal Psych affect normal Psych Narrative: Interacts appropriately Assessment & Plan Assessment/Plan (1) Alcohol withdrawal: (2) Distal radius fracture, right: PLAN: Plan Acute alcohol withdrawal -Delirium has resolved and patient is alert and orient x 3 -Continue to phenobarbital until taper complete -Continue thiamine and folate -Continue supportive medications -180 has met with the patient and she is declining any outpatient services -I did impress upon her the importance of outpatient follow-up and maintaining sobriety but she was adamant she does not need any outpatient resources Mild hyponatremia -Resolved Toxic/metabolic encephalopathy -Resolved Right distal radius fracture -It was reduced and splinted -Nonweightbearing status -Pain regimen as ordered -Patient will need outpatient orthopedic surgery follow-up after discharge History of falls -PT/OT are following--> patient is requiring placement and is acceptable--> referral has been sent to [facility] and will discharge there once pre-CERT is obtained and patient has been accepted -Case management and transition social worker following L1 compression fracture/T12 rib fracture/T10 compression fracture -Patient is not currently complaining of any significant pain at this time -Will continue to monitor and evaluate as patient starts to move more Hypothyroidism -Patient with history of thyroid ablation -Follows with Dr. Abraham -Continue home levothyroxine Hypertension -Continue home clonidine -Continue metoprolol 50 mg daily -Add lisinopril 10 mg daily -As needed hydralazine DVT prophylaxis -Continue subcu Lovenox CODE STATUS -Full code is verified on admission Disposition: -Mentation is much improved however patient still requires placement due to debility. Prefer [facility] and referral was sent. Awaiting acceptance and then pre-CERT to be initiated. Patient will likely be here through the weekend Charges/Coding Visit Charges Inpatient E&M: 23701 Subs Hosp L2
[2023-09-24 20:41] VITALS: BP 149/89; PULSE 72; RESP 16; TEMP 36; O2SAT 100
[2023-09-25 02:40] VITALS: BP 153/107; PULSE 78; RESP 16; TEMP 36.7; O2SAT 98
[2023-09-25] MEDS: Enoxaparin 40 MG/0.4 ML Syringe SC (05:46)
[2023-09-25 08:18] VITALS: BP 151/106; PULSE 96; RESP 16; TEMP 36.9; O2SAT 95
[2023-09-25 08:20] VITALS: BP 151/106; PULSE 96
[2023-09-25] MEDS: Lisinopril 10 MG Tablet PO (08:20)
[2023-09-25] MEDS: Metoprolol(XL)Succ 50 MG Tablet PO (08:20)
[2023-09-25] MEDS: Multivitamins,Ther W-Minerals Tablet 1 TABLET PO (08:21)
[2023-09-25] MEDS: Polyethylene Glycol 3350 17 GM PACKET PO (08:21)
[2023-09-25] MEDS: Folic Acid 1 MG Tablet PO (08:21)
[2023-09-25] MEDS: Senna Tablet 2 TABLET PO ×2 (08:22→20:58)
[2023-09-25] MEDS: Thiamine Hydrochloride 100 MG Tablet PO (08:22)
[2023-09-25] MEDS: Menthol/Lanolin/Calamine/Znox 113 GM Tube 1 APPLIC TOPICAL ×2 (08:23→20:57)
--- NOTE | 2023-09-25 12:52 | PN.HOSP_ITS ---
Reason for Visit Reason for Visit: Fall/wrist fracture/alcohol withdrawal Subjective Subjective Patient is mentating much better overall. Mood remains labile at times with intermittent tearfulness. She is stating that she does not want to go to rehab now today however again I strongly advised. She states she has to go to her sister's wedding on October 07 and wants to talk to her sister. Nursing is going to try to help make that phone call as her sister lives in [place]. Objective Data Objective Data Vital Signs: Vital Signs Temp Pulse Resp BP Pulse Ox O2 Del Method 98.4 F 96 16 151/106 H 95 Room Air 09/25/23 08:18 09/25/23 08:20 09/25/23 08:18 09/25/23 08:20 09/25/23 08:18 09/25/23 08:18 Oxygen Delivery Method Room Air Weight: 56.5 kg Body Mass Index (BMI) 22.8 Intake & Output: Intake and Output for Last 24 Hours 09/23/23 09/24/23 09/25/23 23:59 23:59 23:59 Intake Total 1060 / 1060 220 / 220 700 / 700 Output Total 850 / 850 530 / 530 100 / 100 Balance 210 / 210 -310 / -310 600 / 600 Lab / Micro Data 09/23/23 07:40 09/24/23 06:50 Physical Exam Const alert, oriented x3, no apparent distress, average body habitus and well nourished Constitutional Narrative: Very pleasant, upper middle-aged, white female who appears older than stated age , sitting up awake watching television, interacts appropriately HEENT head/scalp atraumatic, moist oral mucous membranes and oropharynx normal Resp normal respiratory effort, no retractions, no use of accessory muscles and clear to auscultation bilaterally Resp Narrative: Diminished diffusely but clear Auscultation: Negative for crackles, rhonchi or wheezes Cardio regular rate, regular rhythm, S1 normal heart sound, S2 normal heart sound, no murmurs, no rub, no gallops and no clicks GI normal to inspection, nondistended, normoactive bowel sounds, soft to palpation and non-tender Extremity no clubbing, cyanosis or edema Extremity Narrative: Pedal pulses are 2+, right upper extremity is in a splint Neuro oriented x3, moves all extremities and no focal motor deficits Speech: speech normal Psych affect normal Psych Narrative: Mood is labile and patient is intermittently tearful and appears somewhat depressed Assessment & Plan Assessment/Plan (1) Alcohol withdrawal: (2) Distal radius fracture, right: PLAN: Plan Acute alcohol withdrawal -Delirium has resolved and patient is alert and orient x 3 -Patient has completed phenobarbital taper -Discontinue thiamine and folate and continue multivitamin -Discontinue supportive medications -180 has met with the patient and she is declining any outpatient services -I did impress upon her the importance of outpatient follow-up and maintaining sobriety but she was adamant she does not need any outpatient resources Right distal radius fracture -It was reduced and splinted -Nonweightbearing status -Pain regimen as ordered -Patient will need outpatient orthopedic surgery follow-up after discharge History of falls -PT/OT are following--> patient is requiring placement and is acceptable--> awaiting acceptance from a facility -Case management and social work coordinator following L1 compression fracture/T12 rib fracture/T10 compression fracture -Patient is not currently complaining of any significant pain at this time -Will continue to monitor and evaluate as patient starts to move more Hypothyroidism -Patient with history of thyroid ablation -Follows with Dr. Abraham -Continue home levothyroxine Hypertension -Continue home clonidine -Continue metoprolol 50 mg daily -Continue lisinopril but increase to 20 mg daily as blood pressures are still on the high side -As needed hydralazine Depression -Mood has been very labile and tearful at times -No suicidal ideation -Start Zoloft 50 mg daily DVT prophylaxis -Continue subcu Lovenox CODE STATUS -Full code is verified on admission Disposition: -Patient is awaiting acceptance to a facility and then pre-CERT will need to be obtained. Charges/Coding Visit Charges Inpatient E&M: 61982 Subs Hosp L2
[2023-09-25] MEDS: Sertraline 50 MG Tablet PO (13:38)
--- NOTE | 2023-09-25 15:14 | CASEMGMT ---
Social Work SW met w/pt, pt much more alert and awake today. Pt sort of remembers speaking w/SW yesterday. SW spoke w/pt again about going somewhere for rehab as she is not moving well with therapy. Pt became tearful, states that she will go somewhere, though would rather go home. SW did provide the SNF list from [facility] SW reviewed w/her yesterday, that has facilities in pt's preferred geographic area, in pt's insurance network and complete w/quality and resource use data. SW let her know did send a referral to [facility] yesterday per her request but they do not have a bed for her. Pt reviewed the list, agreeable to referrals to [facility]. Pt states she is willing to go anywhere nearby, meaning near her home. SW then spoke w/pt about her alcohol consumption. Pt does not see this as a problem. She states she drinks 10 beers a day, and some wine. At this time it does not seem pt is ready to stop drinking. Pt then shared w/SW she was to go to her sister's wedding October 07 and cannot go now. Pt tearful, SW offered support to her. SW gave her her sister's telephone numbers so she could call her, as she has her phone but not her sister's numbers. Referrals will be made to [facility]. SW to follow up on Wednesday. ELLYN Mohr
[2023-09-25 20:50] VITALS: BP 150/97; PULSE 83; RESP 16; TEMP 36.7; O2SAT 98
[2023-09-25] MEDS: cloNIDine HCl 0.2 MG Tablet PO (20:58)
[2023-09-26 04:00] VITALS: BP 133/84; PULSE 71; RESP 18; TEMP 36.7; O2SAT 98
[2023-09-26] MEDS: Enoxaparin 40 MG/0.4 ML Syringe SC (05:08)
[2023-09-26 08:06] VITALS: BP 150/86; PULSE 88; RESP 16; TEMP 36.6; O2SAT 97
[2023-09-26] MEDS: Senna Tablet 2 TABLET PO ×2 (08:12→21:02)
[2023-09-26] MEDS: Sertraline 50 MG Tablet PO (08:13)
[2023-09-26] MEDS: Multivitamins,Ther W-Minerals Tablet 1 TABLET PO (08:13)
[2023-09-26] MEDS: Polyethylene Glycol 3350 17 GM PACKET PO (08:13)
[2023-09-26 08:14] VITALS: BP 150/86; PULSE 88
[2023-09-26] MEDS: Metoprolol(XL)Succ 50 MG Tablet PO (08:14)
[2023-09-26] MEDS: Lisinopril 20 MG Tablet PO (08:15)
[2023-09-26] MEDS: Menthol/Lanolin/Calamine/Znox 113 GM Tube 1 APPLIC TOPICAL ×2 (08:15→21:01)
--- NOTE | 2023-09-26 15:22 | PN.HOSP_ITS ---
Reason for Visit Reason for Visit: Fall with right wrist fracture/alcohol withdrawal Subjective Subjective No issues overnight. Patient is mentating much better overall. No current medical treatment ongoing other than her chronic medical issues. Awaiting acc eptance and pre-CERT for placement. Objective Data Objective Data Vital Signs: Vital Signs Temp Pulse Resp BP Pulse Ox O2 Del Method 97.8 F 88 16 150/86 H 97 Room Air 09/26/23 08:06 09/26/23 08:14 09/26/23 08:06 09/26/23 08:14 09/26/23 08:06 09/26/23 08:06 Oxygen Delivery Method Room Air Weight: 56.5 kg Body Mass Index (BMI) 22.8 Intake & Output: Intake and Output for Last 24 Hours 09/24/23 09/25/23 09/26/23 23:59 23:59 23:59 Intake Total 220 / 220 1050 / 1050 350 / 350 Output Total 530 / 530 300 / 300 150 / 150 Balance -310 / -310 750 / 750 200 / 200 Lab / Micro Data 09/23/23 07:40 09/24/23 06:50 Physical Exam Const alert, oriented x3, no apparent distress, average body habitus and well nourished Constitutional Narrative: Very pleasant, upper middle-aged, white female who appears older than stated age, sitting up awake watching television, interacts appropriately Resp Resp Narrative: Diminished diffusely but clear Psych affect normal Psych Narrative: Wound was still labile and patient is tearful at times still Assessment & Plan Assessment/Plan (1) Alcohol withdrawal: (2) Distal radius fracture, right: PLAN: Plan Acute alcohol withdrawal -Resolved -Continue multivitamin -180 has met with the patient and she is declining any outpatient services -I did impress upon her the importance of outpatient follow-up and maintaining sobriety but she was adamant she does not need any outpatient resources Right distal radius fracture -It was reduced and splinted -Nonweightbearing status -Pain regimen as ordered -Patient will need outpatient orthopedic surgery follow-up after discharge History of falls -PT/OT are following--> patient is requiring placement and is acceptable--> awaiting acceptance from a facility -Case management and professor of social work following L1 compression fracture/T12 rib fracture/T10 compression fracture -Patient is not currently complaining of any significant pain at this time -Will continue to monitor and evaluate as patient starts to move more Hypothyroidism -Patient with history of thyroid ablation -Follows with Dr. Abraham -Continue home levothyroxine Hypertension -Stop clonidine as it is only 0.2 mg nightly -Continue metoprolol 50 mg daily -Continue lisinopril and increase to 40 mg daily -As needed hydralazine Depression -Mood has been very labile and tearful at times -No suicidal ideation -Continue Zoloft 50 mg daily DVT prophylaxis -Continue subcu Lovenox CODE STATUS -Full code is verified on admission Disposition: -Patient is awaiting acceptance to a facility and then pre-CERT will need to be obtained. Patient is medically ready for discharge Charges/Coding Visit Charges Inpatient E&M: 06874 [facility] [place] Hosp L1
[2023-09-26 20:59] VITALS: BP 130/83; PULSE 83; RESP 18; TEMP 36.8; O2SAT 96
[2023-09-27] VITALS (8 sets, daily range): BP systolic 113–152; BP diastolic 63–99; PULSE 70–80; RESP 14–18; TEMP 36.5–36.9; O2SAT 93–98
[2023-09-27] MEDS: Levothyroxine 88 MCG Tablet PO (05:30)
[2023-09-27] MEDS: Enoxaparin 40 MG/0.4 ML Syringe SC (05:30)
[2023-09-27 06:58] LABS: Absolute Lymphocyte Count 0.66 X10^3/uL (0.83-4.51); Absolute Neutrophil Count 4.3 X10^3/uL (2.0-7.7); Basophil# 0.04 X10^3/uL; Basophil% 0.7 % (0-1); Eosinophil# 0.18 X10^3/uL; Eosinophils% 3.1 % (0-5); Hematocrit 33.7 % (37-47); Lymphocyte # 0.66 X10^3/ul (0.83-4.51); Lymphocyte % 11.2 % (19-41); Mean Corp Hgb Conc 32.6 g/dL (32-36); Mean Corpuscular Hgb 31.9 pg (27.0-32.0); Mean Corpuscular Volume 97.7 fL (81-99); Mean Platelet Vol. 8.8 fl (6.2-12.0); Monocyte# 0.66 X10^3/uL; Monocyte% 11.2 % (0-10); NRBC Flagged by Analyzer 0 % (0-5); Neutrophil # 4.32 X10^3/uL (2.7-7.7); Neutrophil % 73.6 % (47-70); Platelet Count 347 K/mm3 (150-450); RBC Distribution Width CV 12.7 % (11.6-14.6); RBC Distribution Width SD 45.2 fl (35.1-43.9); Red Blood Count 3.45 M/mm3 (4.2-5.4); White Blood Count 5.9 K/mm3 (4.4-11.0)
[2023-09-27 07:27] LABS: Anion Gap 4 (5-15); BUN 15 mg/dL (7-18); BUN/Creat Ratio 35.2 RATIO (10-20); Calcium,Total 8.3 mg/dL (8.5-10.1); Chloride 105 mmol/L (98-107); Creatinine, Serum 0.43 mg/dL (0.55-1.02); EST Glomerular Filtration Rate 157 mL/min (>60); Est Glom Filt Rate - Afr Amer 190 mL/min (>60); Estimated Creatinine Clearance 53.97 ml/min; Glucose 81 mg/dL (74-106); Potassium 3.8 mmol/L (3.5-5.1); Sodium Level 133 mmol/L (136-145)
[2023-09-27] MEDS: Metoprolol(XL)Succ 50 MG Tablet PO (08:16)
[2023-09-27] MEDS: Multivitamins,Ther W-Minerals Tablet 1 TABLET PO (08:17)
[2023-09-27] MEDS: Sertraline 50 MG Tablet PO (08:18)
[2023-09-27] MEDS: Lisinopril 40 MG Tablet PO (08:18)
--- NOTE | 2023-09-27 08:34 | PN.HOSP_ITS ---
Reason for Visit Reason for Visit: Diagnoses Alcohol use, unspecified with withdrawal, unspecified (09/20/23) Unspecified fracture of the lower end of right radius, initial encounter for closed fracture (09/20/23) Objective Data Objective Data Vital Signs: Vital Signs Temp Pulse Resp BP Pulse Ox O2 Del Method 97.8 F 79 18 140/90 H 97 Room Air 09/27/23 08:13 09/27/23 08:16 09/27/23 08:13 09/27/23 08:13 09/27/23 08:13 09/27/23 08:13 Oxygen Delivery Method Room Air Weight: 124 lb 8.979 oz Body Mass Index (BMI) 22.8 Intake & Output: Intake and Output for Last 24 Hours 09/25/23 09/26/23 09/27/23 23:59 23:59 23:59 Intake Total 1050 / 1050 700 / 700 Output Total 300 / 300 150 / 150 Balance 750 / 750 550 / 550 Lab / Micro Data 09/27/23 06:40 09/27/23 06:40 Labs: Laboratory Results - last 24 hr 09/27/23 06:40: WBC 5.9, RBC 3.45 L, Hgb 11.0 L, Hct 33.7 L, MCV 97.7, MCH 31.9, MCHC 32.6, RDW Std Deviation 45.2 H, RDW Coeff of Chace 12.7, Plt Count 347, MPV 8.8, Immature Gran % (Auto) 0.200, Neut % (Auto) 73.6 H, Lymph % (Auto) 11.2 L, Kane % (Auto) 11.2 H, Eos % (Auto) 3.1, Baso % (Auto) 0.7, Absolute Neuts (auto) 4.3, Absolute Lymphs (auto) 0.66 L, Nucleated RBC % 0, Sodium 133 L, Potassium 3.8, Chloride 105, Carbon Dioxide 24.0, Anion Gap 4 L, BUN 15, Creatinine 0.43 L , Estim Creat Clear Calc 53.97, Est GFR (MDRD) Af Amer 190, Est GFR (MDRD) Non- Af 157, BUN/Creatinine Ratio 35.2 H, Glucose 81, Calcium 8.3 L Physical Exam Narrative Seen and examined. Nurse notified that patient had cramping in the abdomen sitting in the toilet. Then she is not aware Bramley passed out/vasovagal syncope. Patient stated she does not remember well and felt dizzy and lightheaded. She is back to baseline. Had bowel movement today. Denies constipation/straining for defecation. No dysuria. Physical exam General: Alert, Oriented x3, Cooperative feels fatigued. HEENT: Atraumatic, PERRLA, EOMI, Normocephalic Oral: No Gingival or Mucosal Lesions/ Ulcerations Neck: Supple, No JVD, Negative Carotid Bruits Chest wall/Lungs: Air entry diminished in bilateral lung bases. No crepitation/rhonchi Cardiovascular: Regular rate, Regular Rhythm, Normal S1, Normal S2, No M/G/R Abdomen: Bowel Sounds Present, Soft, Non Tender, Non-Distended : No dysuria. No renal angle tenderness. No suprapubic tenderness. Extremities: No edema, Capillary Refill Less than 3 Seconds Skin: No rashes, No breakdown Musculoskeletal: No Tenderness to Palpation of Joints or Extremities. Mild sh aking/tremors Neurological: Cranial nerves II-XII grossly intact, DTR 2+/4. No acute focal neurological deficit. Psych/Mental Status: Flat affect Assessment & Plan Assessment/Plan (1) Alcohol withdrawal: (2) Distal radius fracture, right: PLAN: Plan This is a 63-year-old female admitted for acute alcohol withdrawal syndrome. Patient recently had right radial bone fracture and upper extremity in sling and swath. Acute alcohol withdrawal -Resolved -Continue multivitamin -180 has met with the patient and she is declining any outpatient services. Recommended outpatient follow-up with 180. Most likely vasovagal syncope due to defecation reflex: Patient does not remember well and was 1 weakness. No fall. Back to baseline. Does not want steam drier operator but in correct clinical context and circumstances seems vasovagal syncope. Orthostatic blood pressure was done and shows BP 132/87 on supine, heart rate 72, increased to 146/96, heart rate 74 on sitting up. Does not seem orthostatic hypotension. Right distal radius fracture -It was reduced and splinted -Nonweightbearing status -Pain regimen as ordered -Patient will need outpatient orthopedic surgery follow-up after discharge History of falls -PT/OT are following--> patient is requiring placement and is acceptable--> jenna iting acceptance from a facility -Case management and vp digital marketing social media and crm following L1 compression fracture/T12 rib fracture/T10 compression fracture -Patient is not currently complaining of any significant pain at this time -Will continue to monitor and evaluate as patient starts to move more Hypothyroidism -Patient with history of thyroid ablation -Follows with Dr. Abraham -Continue home levothyroxine Hypertension -Stop clonidine as it is only 0.2 mg nightly -Continue metoprolol 50 mg daily -Continue lisinopril and increase to 40 mg daily -As needed hydralazine Depression -Mood has been very labile and tearful at times -No suicidal ideation -Continue Zoloft 50 mg daily DVT prophylaxis -Continue subcu Lovenox CODE STATUS -Full code is verified on admission Disposition: -Patient is awaiting acceptance to a facility and then pre-CERT will need to be obtained. Patient is medically ready for discharge Charges/Coding Visit Charges Inpatient E&M: 39350 Subs Hosp L2
--- NOTE | 2023-09-27 09:46 | CASEMGMT ---
[facility]charge Planning [facility]. Malgorzata Trimble, Discharge Planning Asst.
--- NOTE | 2023-09-27 10:00 | NURSING ---
Pt was up to bedside commode, became unresponsive, staff assist called. Pt moved back to bed and vitals obtained. Vitals stable, patient able to respond that she was having a bowel movement and she didn't feel well. Physician notified.
--- NOTE | 2023-09-27 10:02 | CASEMGMT ---
Discharge Planning [facility] accepted patient. Requested precert be submitted. W asked to disregard referral. SW updated. Malgorzata Trimble, Discharge Planning Asst.
[2023-09-27 10:17] LABS: Bedside Glucose 138 mg/dL (74-106)
--- NOTE | 2023-09-27 15:54 | CASEMGMT ---
Discharge Planning [facility] has obtained auth. It is good for 48hrs. SW updated. Malgorzata Trimble, Discharge Planning Asst.
[2023-09-27] MEDS: Acetaminophen 500 MG Tablet PO (20:21)
[2023-09-27] MEDS: Menthol/Lanolin/Calamine/Znox 113 GM Tube 1 APPLIC TOPICAL (20:22)
[2023-09-28 05:33] VITALS: BP 130/89; PULSE 82; RESP 18; TEMP 37.2; O2SAT 93
[2023-09-28] MEDS: Enoxaparin 40 MG/0.4 ML Syringe SC (05:35)
[2023-09-28] MEDS: Levothyroxine 88 MCG Tablet PO (05:35)
--- NOTE | 2023-09-28 09:36 | CASEMGMT ---
ELMA notified patient that [facility] accepted her and her insurance approved her. ELMA let patient know physician will likely send her today. Patient was worried as she does not have any clothes. ELMA suggested patient contact family to see if they can gather up some clothes for her. Plan: d/c to [facility]
[2023-09-28 10:11] VITALS: BP 111/73; PULSE 91; RESP 16; TEMP 37.3; O2SAT 96
[2023-09-28 10:21] VITALS: BP 111/73; PULSE 91
[2023-09-28] MEDS: Multivitamins,Ther W-Minerals Tablet 1 TABLET PO (10:21)
[2023-09-28] MEDS: Sertraline 50 MG Tablet PO (10:21)
[2023-09-28] MEDS: Metoprolol(XL)Succ 50 MG Tablet PO (10:21)
[2023-09-28] MEDS: Acetaminophen 500 MG Tablet PO ×2 (10:21→16:05)
[2023-09-28] MEDS: Lisinopril 40 MG Tablet PO (10:21)
--- NOTE | 2023-09-28 13:55 | TREXTCAR_ITS ---
Diet Diet Order/Speech Therapy: 09/20/23 03:34 Diet: Regular - General Food consistency:: Regular Liquid Consistency:: Regular/Thin Type of Dietary Supplement:: Ensure Compact Diet Comments: With snacks three times daily as tolerated; ESC w/ breakfast&dinner Therapies Weight Bearing: Weight bearing as tolerated Extremity Affected:: Bilateral Lower Physical Therapy: Eval and Treat Occupational Therapy: Eval and Treat Speech Therapy: Eval and Treat Problem/Diagnosis (1) Alcohol withdrawal: Status: Acute Code(s): F10.939 - Alcohol use, unspecified with withdrawal, unspecified (2) Distal radius fracture, right: Status: Acute Code(s): S52.501A - Unspecified fracture of the lower end of right radius, initial encounter for closed fracture Plan This is a 63-year-old female admitted for acute alcohol withdrawal syndrome. Patient recently had right radial bone fracture and upper extremity in sling and swath. Acute alcohol withdrawal -Resolved -Continue multivitamin -180 has met with the patient and she is declining any outpatient services. Recommended outpatient follow-up with 180. Most likely vasovagal syncope due to defecation reflex: Patient does not remember well and was 1 weakness. No fall. Back to baseline. Does not want registered nurse cardiac but in correct clinical context and circumstances seems vasov agal syncope. Orthostatic blood pressure was done and shows BP 132/87 on supine, heart rate 72, increased to 146/96, heart rate 74 on sitting up. Does not seem orthostatic hypotension. Right distal radius fracture -It was reduced and splinted -Nonweightbearing status -Pain regimen as ordered -Patient will need outpatient orthopedic surgery follow-up after discharge History of falls -PT/OT are following--> patient is requiring placement and is acceptable--> awaiting acceptance from a facility -Case management and foster care social worker following L1 compression fracture/T12 rib fracture/T10 compression fracture -Patient is not currently complaining of any significant pain at this time -Will continue to monitor and evaluate as patient starts to move more Hypothyroidism -Patient with history of thyroid ablation -Follows with Dr. Abraham -Continue home levothyroxine Hypertension -Stop clonidine as it is only 0.2 mg nightly -Continue metoprolol 50 mg daily -Continue lisinopril and increase to 40 mg daily -As needed hydralazine Depression -Mood has been very labile and tearful at times -No suicidal ideation -Continue Zoloft 50 mg daily DVT prophylaxis -Continue subcu Lovenox CODE STATUS -Full code is verified on admission Disposition: -Patient is awaiting acceptance to a facility and then pre-CERT will need to be obtained. Patient is medically ready for discharge Allergies/Procedures Done in Hospital Allergies poison robyn extract Adverse Reaction (Severe, Verified 02/05/23 08:41) Rash Type of Care/Length of Stay Estimated LOS: Convalescent Care Less Than 30 days Type of Care Needed: Skilled Rehab Potential: Good Prognosis: Good Additional Orders/Day of Discharge Day of Discharge: 09/28/23 Dietary and Speech Recommendations Dietitian Recommendations/Changes: Will continue regular diet and snacks as ordered with ensure compact BID for additional nutrition if consumed. Adjust ONS as needed; d/c ensure compact if PO maintained adequate at meals and weight stable. Discharge Plan Admission Admit Date/Time: 09/20/23 03:35 Primary Reason for Your Visit: Acute alcohol withdrawal syndrome with poor balance Attending Provider: Teo Puckett Primary Care Provider: Care Physician,No Primary Consulting Providers: Tracey Oviedo; Teo Puckett; Cookie Cueva Discharge Orders/Prescriptions Prescriptions: New lisinopril 20 mg tablet 20 mg PO DAILY Qty: 30 2RF Rx Instructions: Hold for SBP less than 130 mmHg sennosides 8.6 mg Tablet 17.2 mg PO BID PRN (Reason: Constipation) Qty: 0 0RF Rx Instructions: OTC polyethylene glycol 3350 17 gram Powder In Packet 17 g PO DAILY Qty: 0 0RF Rx Instructions: OTC nicotine 21 mg/24 hr Patch 24 Hour 21 mg transdermal DAILY PRN PRN (Reason: Nicotine Craving) 21 Days Qty: 21 0RF sertraline 50 mg Tablet 50 mg PO DAILY Qty: 0 0RF Continued metoprolol succinate 100 mg tablet extended release 24 hr 100 mg PO DAILY levothyroxine 88 mcg tablet 88 mcg PO .COMPLEX Qty: 90 3RF Rx Instructions: 88 mcg orally Wednesday-Wednesday only; clonidine HCl 0.1 mg tablet 0.2 mg PO QHS 30 Days Qty: 0 0RF Rx Instructions: Hold for SBP less than 140 mmHg Discontinued metoprolol succinate 25 mg tablet extended release 24 hr PO DAILY Referrals / Follow Up: Luis Carlos Lancaster DO [Med Staff - Active Staff] - Within 1 Month (Right distal radius fracture.) Care Physician,No Primary [Primary Care Provider] - Disposition Disposition (needs filled in before D/C Order can be placed): Shelter Facility
--- NOTE | 2023-09-28 14:06 | PCM.DC.SUM ---
Providers Date of Admission: 09/20/23 Primary Care Physician: No Primary Care Phys Reason For Visit: ACUTE ALCOHOL WITHDRAWAL Diagnosis Discharge Diagnosis (1) Alcohol withdrawal: Status: Acute Code(s): F10.939 - Alcohol use, unspecified with withdrawal, unspecified (2) Distal radius fracture, right: Status: Acute Code(s): S52.501A - Unspecified fracture of the lower end of right radius, initial encounter for closed fracture Plan This is a 63-year-old female admitted for acute alcohol withdrawal syndrome. Patient recently had right radial bone fracture and upper extremity in sling and swath. Acute alcohol withdrawal -Resolved -Continue multivitamin -180 has met with the patient and she is declining any outpatient services. Recommended outpatient follow-up with 180. Most likely vasovagal syncope due to defecation reflex: Patient does not remember well and was 1 weakness. No fall. Back to baseline. Does not want groundwater monitoring technician but in correct clinical context and circumstances seems vasovagal syncope. Orthostatic blood pressure was done and shows BP 132/87 on supine, heart rate 72, increased to 146/96, heart rate 74 on sitting up. Does not seem orthostatic hypotension. 09/27: Lisinopril dose decreased to 20 mg daily. Prescription given. Right distal radius fracture -It was reduced and splinted -Nonweightbearing status -Pain regimen as ordered -Patient will need outpatient orthopedic surgery follow-up after discharge, follow with Dr. Lancaster. History of falls -PT/OT are following--> patient is requiring placement and is acceptable--> awaiting acceptance from a facility -Case management and social work therapist following L1 compression fracture/T12 rib fracture/T10 compression fracture -Patient is not currently complaining of any significant pain at this time continue to monitor and evaluate as patient starts to move more Hypothyroidism -Patient with history of thyroid ablation -Follows with Dr. Abraham -Continue home levothyroxine Hypertension Patient blood pressure is well-controlled. Patient on metoprolol succinate, 2 doses 100 mg and then 25 mg daily unclear but her heart rate in the 90s therefore metoprolol succinate 100 mg daily prescribed. Lisinopril 20 mg daily. Continue clonidine 0.2 mg at bedtime as patient history of chronic alcohol use which not to control BP well and chronic alcoholics. Depression -Mood has been very labile and tearful at times -No suicidal ideation -Continue Zoloft 50 mg daily DVT prophylaxis -Continue subcu Lovenox CODE STATUS -Full code is verified on admission Discharge medication reconciliation done. Discharge follow-up instructions completed. Discharge process discussed with the patient and all questions were answered to patient's satisfaction. Follow with PCP in 1 to 2 weeks Total time spent, exact 35 minutes on discharge meds reconciliation, examination, coordination of care with nurses and ancillary staff, review of imaging and blood test and discussion with the patient on follow-up instructions. Medications at Discharge Home Medications levothyroxine 88 mcg tablet 88 mcg PO .COMPLEX #90 tabs 02/05/23 metoprolol succinate 100 mg tablet,extended release 24 hr 100 mg PO DAILY 02/05/23 clonidine HCl 0.1 mg tablet 0.2 mg (2 x 0.1 mg) PO QHS 30 days #0 tabs 09/28/23 lisinopril 20 mg tablet 20 mg PO DAILY #30 tabs 09/28/23 nicotine 21 mg/24 hr daily transdermal patch 21 mg transdermal DAILY PRN PRN Nicotine Craving 21 days #21 ea 09/28/23 polyethylene glycol 3350 17 gram oral powder packet 17 g PO DAILY #0 ea 09/28/23 sennosides 8.6 mg tablet 17.2 mg (2 x 8.6 mg) PO BID PRN Constipation #0 tabs 09/28/23 sertraline 50 mg tablet 50 mg PO DAILY #0 tabs 09/28/23 Physical Exam Narrative Seen and examined. No acute events. Patient denies constipation. No dizziness or lightheadedness. Orthostatic blood pressure in normal limit. Avoid hypotension. Physical exam General: Alert, Oriented x3, Cooperative HEENT: Atraumatic, PERRLA, EOMI, Normocephalic Oral: No Gingival or Mucosal Lesions/ Ulcerations Neck: Supple, No JVD, Negative Carotid Bruits Chest wall/Lungs: Air entry diminished in bilateral lung bases. No crepitation/rhonchi Cardiovascular: Regular rate, Regular Rhythm, Normal S1, Normal S2, No M/G/R Abdomen: Bowel Sounds Present, Soft, Non Tender, Non-Distended : No dysuria. No renal angle tenderness. No suprapubic tenderness. Extremities: No edema, Capillary Refill Less than 3 Seconds Skin: No rashes, No breakdown Musculoskeletal: No Tenderness to Palpation of Joints or Extremities. No tremors. Neurological: Cranial nerves II-XII grossly intact, DTR 2+/4. No acute focal neurological deficit. Psych/Mental Status: Flat affect Weight / BMI Weight Weight: 124 lb 8.979 oz Body Mass Index (BMI) 22.8 ABG / Lab / Microbiology Data 09/27/23 06:40 09/27/23 06:40 Meaningful Use Info Meaningful Use Diagnoses (Choose all that apply): None applicable Discharge Plan Admission Admit Date/Time: 09/20/23 03:35 Primary Reason for Your Visit: Acute alcohol withdrawal syndrome with poor balance Attending Provider: Teo Puckett Primary Care Provider: Care Physician,No Primary Consulting Providers: Tracey Oviedo; Teo Puckett; Cookie Cueva Discharge Orders/Prescriptions Prescriptions: New lisinopril 20 mg tablet 20 mg PO DAILY Qty: 30 2RF Rx Instructions: Hold for SBP less than 130 mmHg sennosides 8.6 mg Tablet 17.2 mg PO BID PRN (Reason: Constipation) Qty: 0 0RF Rx Instructions: OTC polyethylene glycol 3350 17 gram Powder In Packet 17 g PO DAILY Qty: 0 0RF Rx Instructions: OTC nicotine 21 mg/24 hr Patch 24 Hour 21 mg transdermal DAILY PRN PRN (Reason: Nicotine Craving) 21 Days Qty: 21 0RF sertraline 50 mg Tablet 50 mg PO DAILY Qty: 0 0RF Continued metoprolol succinate 100 mg tablet extended release 24 hr 100 mg PO DAILY levothyroxine 88 mcg tablet 88 mcg PO .COMPLEX Qty: 90 3RF Rx Instructions: 88 mcg orally Wednesday-Wednesday only; clonidine HCl 0.1 mg tablet 0.2 mg PO QHS 30 Days Qty: 0 0RF Rx Instructions: Hold for SBP less than 140 mmHg Discontinued metoprolol succinate 25 mg tablet extended release 24 hr PO DAILY Referrals / Follow Up: Luis Carlos Lancaster DO [Med Staff - Active Staff] - Within 1 Month (Right distal radius fracture.) Care Physician,No Primary [Primary Care Provider] - Disposition Disposition (needs filled in before D/C Order can be placed): [facility] Facility Charges/Coding Visit Charges Inpatient E&M: 88131 Disch Hosp >30min
--- NOTE | 2023-09-28 14:31 | CASEMGMT ---
Patient is ready for discharge to [facility]. SW completed a 7000 in [facility] system. Physicians will transport patient. Plan: d/c to [facility] under skilled level of care on a convalescent stay. Tia LARA
--- NOTE | 2023-09-28 14:57 | CASEMGMT ---
Discharge Planning Discharge orders, signed med list, and transport time sent to [facility] via [facility]. Physicians will transport patient by wheelchair at 5p. Nursing, SW, patient, and her sister updated. Malgorzata Trimble, Discharge Planning Asst.
[2023-09-28 16:00] VITALS: BP 124/83; PULSE 80; RESP 16; TEMP 36.7; O2SAT 96
--- NOTE | 2023-09-28 17:18 | NURSING ---
Report called to CR Wagner at [facility] at [phone].
== END 2023-09-28 17:38 | disposition skilled nursing facility (03) | DRG 897 ==
PROVIDERS: Internal Medicine; Admitting Provider Family Medicine; Visit Provider Internal Medicine
DX: F10.139 Alcohol abuse with withdrawal, unspecified (principal); E87.1 Hypo-osmolality and hyponatremia; S52.501A Unspecified fracture of the lower end of right radius, initial encounter for closed fracture; I10 Essential (primary) hypertension; F32.A Depression, unspecified; E89.0 Postprocedural hypothyroidism; F17.200 Nicotine dependence, unspecified, uncomplicated; W19.XXXA Unspecified fall, initial encounter; E87.6 Hypokalemia; S22.079D Unspecified fracture of T9-T10 vertebra, subsequent encounter for fracture with routine healing; S22.39XD Fracture of one rib, unspecified side, subsequent encounter for fracture with routine healing; S32.019D Unspecified fracture of first lumbar vertebra, subsequent encounter for fracture with routine healing; R45.1 Restlessness and agitation; R29.6 Repeated falls; R55 Syncope and collapse; R53.81 Other malaise; Z91.81 History of falling; Z79.01 Long term (current) use of anticoagulants; Z79.890 Hormone replacement therapy; Z79.899 Other long term (current) drug therapy
CPT/HCPCS: 36415; 80048; 80053; 82962; 83735; 84100; 85025; 85027; 97116; 97162; 97166; 97530; 97535; 97802; J7120